=== PATIENT | female | born 1960 | race Caucasian/White ===

== ENCOUNTER 2016-09-02 18:46 | Emergency (ER) | payer BC ==
--- NOTE | ~2016-09-02 | EKG ---
PATIENT: LISANDRA GOLDEN UNIT #: [id number] Ventricular Rate: 91 BPM Atrial Rate: 91 BPM P-R Interval: 128 ms QRS Duration: 90 ms Q-T Interval: 404 ms QTC Calculation(Bezet): 496 ms P [place]: 67 degrees Calculated R [place]: 65 degrees Calculated T [place]: 4 degrees Diagnosis Line: Normal sinus rhythm Diagnosis Line: Nonspecific T wave abnormality Diagnosis Line: Prolonged QT Diagnosis Line: Abnormal ECG Diagnosis Line: No previous ECGs available Diagnosis Line: Confirmed by SHELDON BURGOS MD ([id number]) on Diagnosis Line: 09/04/2016 3:51:13 PM INTERPRETING MD: LORETTA BYRNE
--- NOTE | ~2016-09-02 | CT16 ---
[facility] A Service [facility] RADIOLOGY TEXT RESULTS PATIENT: LISANDRA GOLDEN LOCATION: SED : 58 UNIT #: [id number] AGE: [address]: Marycruz Lockwood MD SEX: F ORDER DR: [id number] [address] [address] [id number] E MR#: [id number] Acc #: [id number] NAME: LISANDRA GOLDEN : 1960 SEX: F STUDY DATE/TIME: 09/02/2016 20:19 UNIT: SED ROOM: STUDY DESCRIPTION: CT Angio Chest for PE Attending Physician: Marycruz Lockwood M.D. Ordering Physician: Marycruz Lockwood M.D. MEDICAL IMAGING REPORT This report is preliminary unless electronic signature is present. EXAM CT scan of the chest with contrast, 09/02/2016. HISTORY Mid chest pain and upper mid back pain for 2 days. Evaluate for pulmonary embolus. TECHNIQUE Spiral CT was performed through the chest following intravenous contrast administration using pulmonary embolus protocol. 3-D reconstructions of the chest were then performed following intravenous contrast administration. This CT exam was performed with one or more of the following radiation dose reduction techniques: automatic exposure control, adjustment of mA and/or kV according to patient size, and iterative reconstruction. FINDINGS There is no CT evidence for pulmonary embolus. The heart is normal in size. There is no significant thoracic adenopathy. There are no pleural effusions. The lungs demonstrate minimal ill-defined infiltrate lateral anterior right lower lobe could reflect pneumonia. IMPRESSION 1. No CT evidence for pulmonary embolus. 2. Minimal infiltrate in the anterolateral right lower lobe could reflect pneumonia. Dictated by... Koffi Lowry M.D. [facility] A Service [facility] RADIOLOGY TEXT RESULTS PATIENT: LISANDRA GOLDEN LOCATION: SED : 58 UNIT #: [id number] AGE: [address]: Marycruz Lockwood MD SEX: F ORDER DR: THIS IS AN ELECTRONICALLY VERIFIED REPORT Koffi Lowry M.D. at 09/04/2016 6:19 AM CY/mervat TD: 09/03/2016 15:52 JOB #: [id number] MEDICAL IMAGING REPORT Page 1 of 1
--- NOTE | ~2016-09-02 | EKG ---
PATIENT: LISANDRA GOLDEN UNIT #: [id number] Ventricular Rate: 84 BPM Atrial Rate: 84 BPM P-R Interval: 136 ms QRS Duration: 74 ms Q-T Interval: 366 ms QTC Calculation(Bezet): 432 ms P [place]: 71 degrees Calculated R [place]: 59 degrees Calculated T [place]: -95 degrees Diagnosis Line: Normal sinus rhythm Diagnosis Line: T wave abnormality, consider inferolateral Diagnosis Line: ischemia Diagnosis Line: Abnormal ECG Diagnosis Line: When compared with ECG of 02-SEP-2016 19:12, Diagnosis Line: (unconfirmed) Diagnosis Line: Inverted T waves have replaced nonspecific T wave Diagnosis Line: abnormality in Inferior leads Diagnosis Line: T wave inversion now evident in Anterolateral Diagnosis Line: leads Diagnosis Line: QT has shortened Diagnosis Line: Confirmed by SHELDON BURGOS MD ([id number]) on Diagnosis Line: 09/04/2016 3:51:18 PM INTERPRETING MD: LORETTA BYRNE
--- NOTE | ~2016-09-02 | CR72 ---
[facility] A Service of [facility] RADIOLOGY TEXT RESULTS PATIENT: LISANDRA GOLDEN LOCATION: SED : 58 UNIT #: [id number] AGE: [address]: Marycruz Lockwood MD SEX: F ORDER DR: [id number] [address] [address] [id number] E MR#: [id number] Acc #: [id number] NAME: LISANDRA GOLDEN : 1960 SEX: F STUDY DATE/TIME: 09/02/2016 19:18 UNIT: SED ROOM: STUDY DESCRIPTION: CR Chest Single View Portable Attending Physician: Marycruz Lockwood M.D. Ordering Physician: Marycruz Lockwood M.D. MEDICAL IMAGING REPORT This report is preliminary unless electronic signature is present. EXAM Portable chest. HISTORY Chest and back pain for 2 days. No injury. FINDINGS Cardiac size and pulmonary vascularity are normal. No infiltrates or effusions. Mild mid-right thoracic curve. IMPRESSION Negative. Dictated by... Cecilio Ba M.D. THIS IS AN ELECTRONICALLY VERIFIED REPORT Cecilio Ba M.D. at 09/03/2016 10:57 PM MOSES/warren TD: 09/03/2016 15:20 JOB #: [id number] MEDICAL IMAGING REPORT Page 1 of 1
[2016-09-02 19:33] LABS: BASOPHIL# 0.1 X10e3 (0-0.3); BASOPHIL% 1.2 % (0-2.5); EOSINOPHIL# 0.1 X10e3 (0-0.7); EOSINOPHIL% 1.7 % (0.0-7.0); HEMATOCRIT 40.8 % (35.0-45.0); HEMOGLOBIN 13.9 gm/dL (12.0-16.0); LYMPHOCYTE# 1.7 X10e3 (1.0-3.5); LYMPHOCYTE% 32.5 % (17.0-45.0); MEAN CELL VOLUME 83.8 FL (83-96); MEAN CORPUSCULAR HEMOGLOBIN 28.5 PG (28-34); MEAN PLATELET VOLUME 7.3 FL (6.5-11.5); MONOCYTE# 0.7 X10e3 (0-1.0); MONOCYTE% 13.1 % (3.0-12.0); NEUTROPHIL# 2.8 X10e3 (1.5-7.1); NEUTROPHIL% 51.5 % (40-75); PLATELET COUNT 264 X10e3 (140-420); RED BLOOD COUNT 4.87 X10e (3.90-5.30); RED CELL DISTRIBUTION WIDTH 13.8 % (11.0-15.5); WHITE BLOOD COUNT 5.3 X10e3 (4.0-10.5)
[2016-09-02 19:39] LABS: DIFF IND NO
[2016-09-02 19:45] LABS: POC - CKMB 3.3 ng/mL (0.0-7.9); POC - TROPONIN <0.05 ng/mL (<=0.05)
[2016-09-02 19:52] LABS: INR 0.9; PROTHROMBIN TIME (PATIENT) 10.7 SECONDS (9.5-12.4)
[2016-09-02 19:59] LABS: PARTIAL THROMBOPLASTIN TIME 28.7 SECONDS (25.6-38.1)
[2016-09-02 20:02] LABS: ALBUMIN SERUM 3.8 g/dL (3.5-5.0); ALKALINE PHOSPHATASE 146 U/L (32-92); ALT (SGPT) 21 U/L (10-40); AST (SGOT) 30 U/L (10-42); BILIRUBIN,TOTAL 0.3 mg/dL (0.2-2.0); BLOOD UREA NITROGEN 11 mg/dL (9-23); BUN/CREATININE RATIO 15.71; CALCIUM SERUM 8.1 mg/dL (8.4-10.2); CARBON DIOXIDE 24 mmol/L (22-31); CHLORIDE 102 mmol/L (100-111); CREATININE SERUM 0.7 mg/dL (0.6-1.4); GLOM FILT RATE Estimated 96.2 mL/min (>60); GLUCOSE FASTING 108 mg/dL (70-110); MAGNESIUM 2.1 mg/dL (1.6-3.0); POTASSIUM 3.2 mmol/L (3.5-5.1); SODIUM 132 mmol/L (135-145)
[2016-09-02 20:03] LABS: BILIRUBIN, DIRECT <0.1 mg/dL (0.0-0.2); BILIRUBIN,INDIRECT 0.2 mg/dL (0.0-0.9)
[2016-09-02 21:17] LABS: POC - CKMB 2.3 ng/mL (0.0-7.9); POC - TROPONIN <0.05 ng/mL (<=0.05)
== END 2016-09-02 21:29 | disposition left against medical advice (07) ==
LOC: SED 18:46
PROVIDERS: Student in an Organized Health Care Education/Training Program
DX: R07.9 Chest pain, unspecified (principal); M54.9 Dorsalgia, unspecified; J44.9 Chronic obstructive pulmonary disease, unspecified; Z90.49 Acquired absence of other specified parts of digestive tract; Z90.710 Acquired absence of both cervix and uterus; F17.200 Nicotine dependence, unspecified, uncomplicated; Z88.8 Allergy status to other drugs, medicaments and biological substances
CPT/HCPCS: 36415; 71010; 71275; 80048; 80076; 82553; 83735; 83880; 84484; 85025; 85379; 85610; 85730; 93005; 96361; 96374; 96375; 99284; G0480; J2270; J2405; J3360; Q9967

== ENCOUNTER 2016-09-08 14:35 | Emergency (ER) | payer OTHER | END 2016-09-08 16:08 | disposition home or self-care (01) | LOC: SED 14:35 | DX: J20.9 Acute bronchitis, unspecified (principal); Z88.8 Allergy status to other drugs, medicaments and biological substances; F17.200 Nicotine dependence, unspecified, uncomplicated; I25.10 Atherosclerotic heart disease of native coronary artery without angina pectoris | CPT/HCPCS: 99284 ==